=== PATIENT | female | born 2000 ===

== ENCOUNTER 2018-05-29 12:21 | Emergency (ER) | payer MEDICAID ==
[~2018-05-29] VITALS: Ht 175.3 cm; Wt 79.5 kg
[2018-05-29 12:30] VITALS: Ht 175.3 cm; Wt 79.5 kg
[2018-05-29] MEDS ORDERED: PRENAVITE1 TAB PO (12:32)
[2018-05-29 14:13] VITALS: BP 116/69
== END 2018-05-29 14:15 | disposition left against medical advice (07) ==
LOC: D.ER 12:21
DX: O26.893 Other specified pregnancy related conditions, third trimester (principal); Z3A.37 37 weeks gestation of pregnancy; R05 Cough